=== PATIENT | female | born 1935 | race Hispanic/Latino ===

== ENCOUNTER 2017-09-20 14:09 | Inpatient (IN) | payer MEDICARE ==
[2017-09-20] MEDS ORDERED: PROVENTIL IH ONE (14:15)
[2017-09-20] MEDS ORDERED: LEVAQUIN 750MG/150ML 750 MG/150 ML BAG IV ONE (14:15)
[2017-09-20] MEDS ORDERED: ATROVENT IH ONE (14:15)
[2017-09-20] MEDS ORDERED: DUONEB *Not for PRN Use IH ONE (14:19)
--- NOTE | 2017-09-20 14:22 | Emergency Department Report ---
ED Shortness of Breath HPI - General Chief Complaint: Altered Mental Status Stated Complaint: UNRESPONSIVE Time Seen by Provider: 09/20/17 14:14 Source: family, EMS Mode of arrival: Stretcher Limitations: Altered Mental Status - History of Present Illness Initial Comments: Patient is a 21 years old female history of COPD brought in by EMS with altered mental status and agonal breathing. Family stated that she was seen at [facility] ER yesterday and treated for dizziness. She became more lethargic this morning. Family denied any recent fever or complaint of chest pain. Family report patient is a DO NOT RESUSCITATE. Family does not have the paper for that but they stated that she told them about it and she told her physician about it too. MD Complaint: shortness of breath - Related Data Home Medications Medication Instructions Recorded Confirmed Last Taken ALPRAZolam [Xanax TAB] 0.5 mg PO BID PRN 07/06/16 07/06/16 07/05/16 Amlodipine Besylate [Amlodipine 5 mg PO QDAY 07/06/16 07/06/16 07/05/16 Besylate] AtorvaSTATin [Lipitor] 40 mg PO QDAY 07/06/16 07/06/16 07/05/16 Citalopram Hydrobromide 40 mg PO QAM 07/06/16 07/06/16 07/05/16 [Citalopram HBr] Fluticasone/Salmeterol [Advair 1 puff INHALATION BID 07/06/16 07/06/16 07/06/16 250-50 Diskus] Levothyroxine [Synthroid] 50 mcg PO QAM 07/06/16 07/06/16 07/05/16 Montelukast [Singulair] 10 mg PO QPM 07/06/16 07/06/16 07/05/16 Multivit-Min/FA/Lycopen/Lutein 1 tab PO QDAY 07/06/16 07/06/16 07/05/16 [Centrum Silver Tablet] Tiotropium [Spiriva] 1 puff QDAY 07/06/16 07/06/16 07/06/16 metFORMIN [Glucophage] 1,000 mg PO QAM 07/06/16 07/06/16 07/04/16 metFORMIN [Glucophage] 500 mg PO QPM 07/06/16 07/06/16 07/04/16 Allergies Allergy/AdvReac Type Severity Reaction Status Date / Time No Known Allergies Allergy Verified 07/06/16 06:29 ED Review of Systems ROS: Stated complaint: UNRESPONSIVE Other details as noted in HPI Comment: Unobtainable due to pts medical conditions ED Past Medical Hx - Past Medical History Hx Hypertension: Yes Hx Congestive Heart Failure: No Hx Diabetes: Yes Hx Asthma: Yes Hx COPD: Yes - Surgical History Hx Cholecystectomy: Yes - Social History Smoking Status: Current Every Day Smoker - Medications Home Medications: Home Medications Medication Instructions Recorded Confirmed Last Taken Type ALPRAZolam [Xanax TAB] 0.5 mg PO BID PRN 07/06/16 07/06/16 07/05/16 History Amlodipine Besylate [Amlodipine 5 mg PO QDAY 07/06/16 07/06/16 07/05/16 History Besylate] AtorvaSTATin [Lipitor] 40 mg PO QDAY 07/06/16 07/06/16 07/05/16 History Citalopram Hydrobromide 40 mg PO QAM 07/06/16 07/06/16 07/05/16 History [Citalopram HBr] Fluticasone/Salmeterol [Advair 1 puff INHALATION BID 07/06/16 07/06/16 07/06/16 History 250-50 Diskus] Levothyroxine [Synthroid] 50 mcg PO QAM 07/06/16 07/06/16 07/05/16 History Montelukast [Singulair] 10 mg PO QPM 07/06/16 07/06/16 07/05/16 History Multivit-Min/FA/Lycopen/Lutein 1 tab PO QDAY 07/06/16 07/06/16 07/05/16 History [Centrum Silver Tablet] Tiotropium [Spiriva] 1 puff QDAY 07/06/16 07/06/16 07/06/16 History metFORMIN [Glucophage] 1,000 mg PO QAM 07/06/16 07/06/16 07/04/16 History metFORMIN [Glucophage] 500 mg PO QPM 07/06/16 07/06/16 07/04/16 History ED Physical Exam - General Limitations: Altered Mental Status General appearance: obtunded - Head Head exam: Present: atraumatic, normocephalic, normal inspection - Eye Eye exam: Present: normal appearance - ENT ENT exam: Present: normal exam - Respiratory Respiratory exam: Present: wheezes, decreased breath sounds, prolonged expiratory - Cardiovascular Cardiovascular Exam: Present: regular rate, normal rhythm, normal heart sounds - GI/Abdominal GI/Abdominal exam: Present: soft, normal bowel sounds. Absent: distended - Neurological Exam Neurological exam: Present: altered - Skin Skin exam: Present: warm, intact, normal color. Absent: cyanosis ED Course Vital Signs 09/20/17 09/20/17 09/20/17 14:10 14:32 14:39 Pulse Rate 68 Pulse Rate [ 75 80 Bilateral Upper Lobe] Respiratory 10 L Rate Respiratory 18 18 Rate [Bilateral Upper Lobe] Blood Pressure 153/113 O2 Sat by Pulse 98 Oximetry - Reevaluation(s) Reevaluation #1: 09/20/17 15:27 Patient put on nonrebreather in the ER and her oxygen saturation is 96%. ED Medical Decision Making - Lab Data Result diagrams: 09/20/17 14:16 09/20/17 14:16 - EKG Data -: EKG Interpreted by Me EKG shows normal: sinus rhythm Rate: normal - EKG Data Interpretation: no acute changes - Radiology Data Radiology results: report reviewed Chest x-ray showed no acute abnormalities. - Medical Decision Making Discuss with Dr Rdz, informed about the patient, agreed to admit to his service. Critical care attestation.: If time is entered above; I have spent that time in minutes in the direct care of this critically ill patient, excluding procedure time. ED Disposition Clinical Impression: Respiratory failure Disposition: [id number] OP ADMIT IP TO THIS HOSP Is pt being admited?: Yes Condition: Stable
[2017-09-20 14:30] LABS: Hematocrit 21.9 % (30.3-42.9); Hemoglobin 6.3 gm/dl (10.1-14.3); Mean Corpuscular HGB Conc 29 % (30-34); Mean Corpuscular Hemoglobin 27 pg (28-32); Mean Corpuscular Volume 92 fl (79-97); Platelet Count 202 K/mm3 (140-440); Red Blood Count 2.38 M/mm3 (3.65-5.03); Red Cell Distribution Width 16.6 % (13.2-15.2); White Blood Count 8.2 K/mm3 (4.5-11.0)
[2017-09-20 15:13] LABS: Albumin 3.1 g/dL (3.9-5); Albumin/Globulin Ratio 1.6 %; Bilirubin,Total 0.2 mg/dL (0.1-1.2); Calcium 8.6 mg/dL (8.4-10.2); Chloride 90.3 mmol/L (98-107)
--- NOTE | 2017-09-20 15:19 | XRay Report ---
AP CHEST: HISTORY: Dyspnea AP view of the chest demonstrates a normal mediastinal and cardiac contour with clear lungs and normal bony and soft tissue structures. IMPRESSION: No acute cardiopulmonary process identified.
[2017-09-20 15:27] LABS: Potassium 6.5 mmol/L (3.6-5.0)
--- NOTE | 2017-09-20 15:41 | History and Physical Report ---
History of Present Illness Chief complaint: Shes not waking up. 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 Pt stuporous and unable to provide history. Pt family at bedside,and provides history. Pt and experienced shortness of breath for the past several weeks, with persistent symptoms during that same time period. Pt seen and evaluted and [facility] ED and released. As per family, patient has become less responsive over the past day. No reports to fever, chills, CP, Palpitations, NVD, or recent ill contacts. EMS notified, and patient found to have hypoxemic respiratory failure , and was initiated on supplemental oxygen and transported to [facility] for evaluation. Pt seen and evaluated in ED and found to be in severe respiratopry distress with poor prognosis. Patient poor prognosis discussed with family. Pt family request that patient receive comfort care. Pt family elects to make patient DNR, and request hospice evaluation. Hospice consulted in ED. Past History Past Medical History: COPD, diabetes, hypertension Past Surgical History: cholecystectomy Social history: , smoking Family history: diabetes, hypertension Medications and Allergies Allergies Allergy/AdvReac Type Severity Reaction Status Date / Time No Known Allergies Allergy Verified 07/06/16 06:29 Home Medications Medication Instructions Recorded Confirmed Last Taken Type ALPRAZolam [Xanax TAB] 0.5 mg PO BID PRN 07/06/16 07/06/16 07/05/16 History Amlodipine Besylate [Amlodipine 5 mg PO QDAY 07/06/16 07/06/16 07/05/16 History Besylate] AtorvaSTATin [Lipitor] 40 mg PO QDAY 07/06/16 07/06/16 07/05/16 History Citalopram Hydrobromide 40 mg PO QAM 07/06/16 07/06/16 07/05/16 History [Citalopram HBr] Fluticasone/Salmeterol [Advair 1 puff INHALATION BID 07/06/16 07/06/16 07/06/16 History 250-50 Diskus] Levothyroxine [Synthroid] 50 mcg PO QAM 07/06/16 07/06/16 07/05/16 History Montelukast [Singulair] 10 mg PO QPM 07/06/16 07/06/1616 History Multivit-Min/FA/Lycopen/Lutein 1 tab PO QDAY 07/06/16 07/06/16 07/05/16 History [Centrum Silver Tablet] Tiotropium [Spiriva] 1 puff QDAY 07/06/16 07/06/16 07/06/16 History metFORMIN [Glucophage] 1,000 mg PO QAM 07/06/16 07/06/16 07/04/16 History metFORMIN [Glucophage] 500 mg PO QPM 07/06/16 07/06/16 07/04/16 History Active Meds: Active Medications Levofloxacin/Dextrose (Levaquin 750mg/150ml) 750 mg in 150 mls @ 100 mls/hr IV ONCE ONE PRN Reason: Protocol Stop: 09/20/17 15:44 Review of Systems ROS unobtainable: due to mental status Exam - Constitutional Vitals: Temp Pulse Resp BP Pulse Ox 80 18 153/113 98 09/20/17 14:39 09/20/17 14:39 09/20/17 14:10 09/20/17 14:10 General appearance: Present: severe distress - EENT Eyes: Present: PERRL - Neck Neck: Present: supple - Respiratory Respiratory effort: labored Respiratory: bilateral: diminished - Cardiovascular Heart Sounds: Present: S1 & S2. Absent: rub, click - Extremities Extremities: pulses symmetrical, No edema Peripheral Pulses: within normal limits - Abdominal General gastrointestinal: Present: soft, non-tender, non-distended, normal bowel sounds Female genitourinary: Present: normal - Integumentary Integumentary: Present: clear, dry, clammy, pale, decreased turgor - Musculoskeletal Musculoskeletal: generalized weakness - Psychiatric Psychiatric: no intact judgment & insight, no memory intact - Neurologic Neurologic: no gait normal Results - Labs CBC & Chem 7: 09/20/17 14:16 09/20/17 14:16 Labs: Abnormal lab results 09/20/17 09/20/17 09/20/17 Range/Units 14:16 14:16 14:17 RBC 2.38 L (3.65-5.03) M/mm3 Hgb 6.3 L (10.1-14.3) gm/dl Hct 21.9 L (30.3-42.9) % MCH 27 L (28-32) pg MCHC 29 L (30-34) % RDW 16.6 H (13.2-15.2) % Sodium 132 L (137-145) mmol/L Potassium 6.5 H* (3.6-5.0) mmol/L Chloride 90.3 L (98-107) mmol/L Carbon Dioxide 37 H (22-30) mmol/L BUN 38 H (7-17) mg/dL Creatinine 1.8 H (0.7-1.2) mg/dL Glucose 133 H (65-100) mg/dL POC Glucose 132 H (70-105) Total Protein 5.0 L (6.3-8.2) g/dL Albumin 3.1 L (3.9-5) g/dL Assessment and Plan - Patient Problems (1) End stage COPD Current Visit: Yes Status: Acute Plan to address problem: Poor Prognosis: Pt family request Hospice care, Supplemental oxygen, nebulizer therapy, aspiration precautions, Morphine, comfort care, AND/DNR status as per family request. (2) Hyperkalemia Current Visit: Yes Status: Acute Plan to address problem: calcium gluconate, kayexelate (3) ARF (acute renal failure) Current Visit: Yes Status: Acute Plan to address problem: pain control, supportive care. (4) Encephalopathy Current Visit: Yes Status: Acute Plan to address problem: secondary to multi organ system failure. pain control, supportive care. (5) Respiratory failure Current Visit: Yes Status: Acute Qualifiers: Respiratory failure complication: hypoxia Plan to address problem: supplemental oxygen, nebs, aspiration precautions, (6) DVT prophylaxis Current Visit: Yes Status: Acute
[2017-09-20] MEDS ORDERED: PROVENTIL IH PRN (15:50)
[2017-09-20] MEDS ORDERED: DULCOLAX PR PRN (15:50)
[2017-09-20] MEDS ORDERED: ZOFRAN IV PRN (15:50)
[2017-09-20] MEDS ORDERED: MILK OF MAGNESIA PO PRN (15:50)
[2017-09-20] MEDS ORDERED: TYLENOL PO PRN (15:50)
[2017-09-20] MEDS: MORPHINE IV PRN ×2 (16:41→20:57)
[2017-09-20 16:47] LABS: Anisocytosis 1+; Basophils % (Manual) 0 % (0.0-1.8); Blastocytes % (Manual) 0 %; Diff Status Complete; Eosinophils % (Manual) 0 % (0.0-4.3); Hypochromasia 1+; Platelet Estimate Consistent w Auto
[2017-09-20 17:45] VITALS: BP 49/14
--- NOTE | 2017-09-20 23:00 | Event Note ---
Date: 09/20/17 call to pronounce patient, time of 1824
--- NOTE | 2017-10-08 09:34 | Death Summary ---
Summary - Providers Attending: ESTEBAN YU MD - summary Date of admission: 09/20/17 15:51 Date of : 09/20/17 Disposition: 81 YO Female with End Stage COPD with Chronic Respiratory Failure, Nicotine Dependence, HTN, DM, Asthma presents to ED for evaluation. Pt stuporous and unable to provide history. Pt family at bedside,and provides history. Pt and experienced shortness of breath for the past several weeks, with persistent symptoms during that same time period. Pt seen and evaluted and [facility] ED and released. As per family, patient has become less responsive over the past day. No reports to fever, chills, CP, Palpitations, NVD, or recent ill contacts. EMS notified, and patient found to have hypoxemic respiratory failure , and was initiated on supplemental oxygen and transported to [facility] for evaluation. Pt seen and evaluated in ED and found to be in severe respiratopry distress with poor prognosis. Patient poor prognosis discussed with family. Pt family request that patient receive comfort care. Pt family elects to make patient DNR, and request hospice evaluation. Hospice consulted in ED. Pt decompensated during hospital course. Pt pronounced at 2250 - Final diagnosis (1) End stage COPD Note: Final diagnosis: (2) Hyperkalemia Note: Final diagnosis: (3) ARF (acute renal failure) Note: Final diagnosis: (4) Encephalopathy Note: Final diagnosis: (5) Respiratory failure Qualifiers: Respiratory failure complication: hypoxia Note: Final diagnosis: (6) DVT prophylaxis Note: Final diagnosis:
== END 2017-09-21 01:00 | DRG 682 ==
LOC: ED 14:09 → 2B-ACE 15:51
PROVIDERS: ADMIT Internal Medicine; ATTEND Internal Medicine
DX: N17.9 Acute kidney failure, unspecified (principal); G93.40 Encephalopathy, unspecified; J96.21 Acute and chronic respiratory failure with hypoxia; J44.1 Chronic obstructive pulmonary disease with (acute) exacerbation; Z66 Do not resuscitate; Z79.899 Other long term (current) drug therapy; I10 Essential (primary) hypertension; F17.200 Nicotine dependence, unspecified, uncomplicated; Z90.49 Acquired absence of other specified parts of digestive tract; E11.9 Type 2 diabetes mellitus without complications; Z83.3 Family history of diabetes mellitus; Z82.49 Family history of ischemic heart disease and other diseases of the circulatory system; E87.5 Hyperkalemia
CPT/HCPCS: 36415; 71010; 80053; 80061; 82962; 84484; 85007; 85025; 87040; 93005; 93010; 94640; J1956; J2270; J2930